=== PATIENT | female | born 2000 ===

== ENCOUNTER 2023-08-02 19:46 | Emergency (ER) | payer OTHER, BC ==
[~2023-08-02] VITALS: Ht 175.3 cm; Wt 79.6 kg
[2023-08-02] MEDS ORDERED: VENTOLIN HFA18 GM INH (20:07)
[2023-08-02 21:23] VITALS: BP 120/83
== END 2023-08-02 21:33 | disposition home or self-care (01) ==
LOC: ED 19:46
PROVIDERS: Internal Medicine
DX: Z77.21 Contact with and (suspected) exposure to potentially hazardous body fluids (principal)
CPT/HCPCS: 84460; 86706; 86707; 86803; 87350